=== PATIENT | female | born 1970 | race African-American/Black ===

== ENCOUNTER 2023-08-29 22:28 | Emergency (ER) | payer OTHER ==
[~2023-08-29] VITALS: Ht 170.2 cm; Wt 102.5 kg
[2023-08-30] MEDS ORDERED: BUPIVAcaine/PF 2.5 mg/ml (0.25%) 30ml vial IJ ONE (01:55)
[2023-08-30] MEDS ORDERED: ketorolac trometh inj. 60 MG/2 ML VIAL IM ONE (02:35)
[2023-08-30] MEDS ORDERED: CLIN-214 PO (03:22)
[2023-08-30 04:47] VITALS: BP 127/89; PULSE 77; RESP 14; TEMP 98.1; O2SAT 100
== END 2023-08-30 04:48 | disposition home or self-care (01) ==
LOC: ER 22:29
DX: K04.7 Periapical abscess without sinus (principal); Z88.0 Allergy status to penicillin; Z79.899 Other long term (current) drug therapy
CPT/HCPCS: 64400; 96372; 99284; J1885